=== PATIENT | female | born 1990 | race Caucasian/White ===

== ENCOUNTER 2017-11-25 13:34 | Emergency (ER) | payer OTHER ==
[~2017-11-25] VITALS: Ht 165.1 cm; Wt 90.7 kg
[~2017-11-25 13:34] MED LIST: CIPROFLOXACIN500 M3 OR; JUNEL FE 1-201 EACH PO; PYRIDIUM200 MG PO; ZYRTEC
[2017-11-25] MEDS ORDERED: IBUPROFEN 800800 M1 PO (13:46)
[2017-11-25] MEDS ORDERED: ZYRTEC10 M5 PO (13:46)
[2017-11-25 14:10] LABS: HEMATOCRIT 33.4 % (37.0-47.0); HEMOGLOBIN 11.2 gm/dL (12.0-15.0); MCH 28.7 pg (26.0-34.0); MCHC 33.5 g/dL (28.0-37.0); MCV 85.7 fL (80.0-100.0); MPV 7.7 fl. (7.2-11.1); NUCLEATED RBCS 0 /100WBC; PLATELET COUNT* 283 thou/uL (150-400); RBC 3.89 mil/uL (4.20-5.00); RDW-CV 13.4 % (10.5-14.5); WBC 21.3 thou/uL (4.0-11.0)
[2017-11-25 14:11] LABS: URINE BLOOD 2+ (Negative); URINE CLARITY CLEAR; URINE COLOR YELLOW; URINE GLUCOSE-RANDOM NEGATIVE (Negative); URINE LEUKOCYTES-REFLEX TRACE (Negative); URINE NITRITE-REFLEX NEGATIVE (Negative); URINE PROTEIN 2+ (Negative); URINE SPECIFIC GRAVITY >= 1.030 (1.005-1.030); URINE UROBILINOGEN 0.2 E.U./dl (0.2-1.0)
[2017-11-25 14:12] LABS: URINE BILIRUBIN 1+ (Negative); URINE KETONES 3+ (Negative)
[2017-11-25 14:21] LABS: CALCIUM 8.5 mg/dL (8.5-10.1); CREATININE 0.9 mg/dL (0.6-1.3); POTASSIUM 3.4 mmol/L (3.5-5.1)
[2017-11-25 14:25] LABS: ALBUMIN 3.4 g/dL (3.4-5.0); TOTAL BILIRUBIN 0.9 mg/dL (<0.1-1.0); TOTAL PROTEIN 7.7 g/dL (6.4-8.2)
[2017-11-25 14:29] LABS: ICTOTEST (BILI CONFIRMATORY) Negative (Negative)
[2017-11-25 14:35] LABS: ABSOLUTE LYMPHOCYTES 0.2 thou/uL (0.8-5.3); ABSOLUTE MONOCYTES 3.4 thou/uL (0.0-1.2); ABSOLUTE NEUTROPHILS 17.7 thou/uL (1.6-8.1); PLATELET ESTIMATE ADEQUATE
[2017-11-25 14:37] LABS: BACTERIA-REFLEX >30 Many /HPF (None Seen); URINE RBC >20 Many /HPF (0-2); WBC CASTS 0-3 /LPF
[2017-11-25 14:38] LABS: COARSE GRANULAR CASTS 0-3 Few /LPF (None Seen); CRYSTALS None Seen /LPF (None Seen); MUCUS 4-6 Moderate strn/LPF (None Seen); SQUAMOUS 4-10 Moderate /LPF (0-3)
--- NOTE | 2017-11-25 15:57 | EKG ---
[place] [address] ELECTROCARDIOGRAM REPORT Name: ADDIS CAMERON Room: [facility]#: [id number] Admission: 11/25/17 Attend Phys: Discharge: Date of : 89 Report #: [id number] THIS REPORT FOR: //name// [facility] ED Test Date: 2017-11-25 Test Time: 14:30:51 Pat Name: ADDIS CAMERON Department: Room: Gender: F [employer] Operator: STUDENT : 1990 Requested By: Mike Lopez Order Number: [id number] MD: Gilmar Gan Measurements Intervals [place] Rate: 122 P: 45 TN: 145 QRS: 55 QRSD: 98 T: 17 QT: 286 QTc: 408 Interpretive Statements Sinus tachycardia Minimal ST depression, inferior leads Borderline ST elevation, anterior leads, normal variant Baseline wander in lead(s) II,aVF No previous ECG available for comparison Electronically Signed On 11-25-2017 15:56:57 POOL FINISHER by Gilmar Gan [email or web address] <ELECTRONICALLY SIGNED> By: Gilmar Gan MD, [facility] 11/25/17 1556 1430 1430 Gilmar Gan MD, FACC /EPI
[2017-11-25] MEDS ORDERED: ZOFRAN ODT4 MG PO (16:51)
[2017-11-25] MEDS ORDERED: MACROBID 100 M100 M1 PO (16:51)
[2017-11-25 17:03] VITALS: BP 109/69
== END 2017-11-25 17:10 | disposition home or self-care (01) ==
LOC: M.ERS 13:34
PROVIDERS: Physician Assistant
DX: N30.01 Acute cystitis with hematuria (principal); K52.9 Noninfective gastroenteritis and colitis, unspecified